=== PATIENT | female | born 1945 | race Caucasian/White ===

== ENCOUNTER 2017-07-16 12:55 | Inpatient (IN) ==
--- NOTE | 2017-07-16 13:17 | Emergency Department Note ---
Disposition Clinical Impression: Bronchitis, Generalized weakness Disposition: Admitted As Inpatient Condition: Fair Forms: ED Satisfaction Letter Time of Disposition: 15:53 General Adult HPI - General Chief complaint: ED Weakness Stated complaint: weakness Time Seen by Provider: 07/16/17 12:58 Source: patient, EMS Limitations: no limitations Nursing Notes Reviewed: Yes Vital Signs Reviewed: Yes - History of Present Illness HPI Narrative: 72-year-old who was diagnosed with flu A on 07/05/2017 and has gotten progressively worse since now we couldn't get out of bed today with a cough and shortness of breath. Pt Subjective Complaint: Otherwise weakness cough shortness of breath Onset (ago): day(s) Location: other (Generalized) Pain Scale: 8 Quality: aching Consistency: constant Improves with: nothing Worsens with: nothing Associated symptoms: Reports: cough, fever/chills Treatments Prior to Arrival: other (Tamiflu) - Related Data Allergies Allergy/AdvReac Type Severity Reaction Status Date / Time Sulfa (Sulfonamide Allergy Rash Verified 03/03/15 08:55 Antibiotics) Constitutional: Reports: fever. Denies: chills, weakness, weight change Eyes: Denies: eye pain, eye discharge, vision change ENT ED: Denies: ear pain, throat pain, dental pain, hearing loss, epistaxis, congestion, dysphagia Cardiovascular: Denies: chest pain, palpitations, dyspnea on exertion, edema, syncope Respiratory: Reports: cough, dyspnea. Denies: wheezes, hemoptysis, stridor Gastrointestinal: Denies: abdominal pain, nausea, vomiting, diarrhea, constipation, hematemesis, melena, hematochezia Genitourinary: Denies: dysuria, frequency, hematuria, discharge Musculoskeletal: Denies: back pain, neck pain, arthralgia, myalgia Integumentary: Denies: rash, abrasion, lesions Neurological: Reports: weakness (Generalized). Denies: headache, numbness, paresthesias, confusion, abnormal gait, vertigo Psychiatric: Denies: anxiety, depression, suicidal thoughts, homicidal thoughts , auditory hallucinations, visual hallucinations Endocrine: Denies: fatigue Hematological/Lymphatic: Denies: easy bleeding, easy bruising Allergic/Immunologic: Denies: facial swelling, urticaria Past Medical History - Past Medical History Medical history: Reports: cancer, osteoporosis Psychiatric history: Reports: no psych history - Social History Smoking Status: Never smoker Smokeless Tobacco Status: No Alcohol use: Reports: none Drug use: Reports: none Physical Exam - General Limitations: no limitations General appearance: alert - Head Head exam: atraumatic, normocephalic, normal inspection - Eye Eye exam: Present: normal appearance, PERRL, EOMI - ENT ENT exam: normal exam, normal oropharynx, mucous membranes moist - Neck Neck exam: Present: normal inspection, full ROM, trachea midline - Chest Chest inspection: Present: normal inspection, symmetric chest wall rise - Respiratory Respiratory exam: Present: wheezes (Regional) - Cardiovascular Cardiovascular exam: Present: regular rate, normal rhythm, normal heart sounds - Abdominal Exam Abdominal exam: Present: soft, Non-Tender. Absent: tenderness, distention, guarding, rebound, rigidity - Extremities Exam Extremities exam: Present: normal inspection, full ROM. Absent: tenderness, pedal edema - Expanded Lower Extremity Exam Neurovascular/Tendon exam: Absent: motor deficit, sensory deficit, tendon deficit - Back Exam Back exam: Present: normal inspection, full ROM. Absent: tenderness - Neurological Exam Neurological exam: Present: alert, oriented X3 - Psychiatric Psychiatric exam: Present: normal affect, normal mood - Skin Skin exam: Present: warm, dry, intact, normal color Course - Reevaluation(s) Reevaluation #1: 72-year-old comes in with cough congestion shortness of breath generalized weakness. Patient was diagnosed with the flu 2 weeks ago and has never gotten better. Initial chest x-ray is negative. We gave her fluids and she still felt pretty bad. We will go ahead and admit IV hydration will give her antibiotics. She hasn't been eating or drinking and it is possible that her pneumonia has not manifested itself as she is dehydrated. Time: 15:55 - Consultations Consultation #1: Discussed with Dr. Gagnon, admit Time: 15:54 Vital Signs Temperature 99.1 F 07/16/17 12:57 Pulse Rate 102 07/16/17 12:57 Respiratory Rate 20 07/16/17 12:57 Blood Pressure 137/68 07/16/17 12:57 O2 Sat by Pulse Oximetry 94 07/16/17 12:57 Temperature 99.1 F 07/16/17 12:57 Pulse Rate 103 07/16/17 15:19 Respiratory Rate 18 07/16/17 15:19 Blood Pressure 132/65 07/16/17 15:19 O2 Sat by Pulse Oximetry 94 07/16/17 15:19 Oxygen Delivery Oxygen Delivery Room Air Medical Decision Making - Lab Data Result diagrams: 07/16/17 13:27 07/16/17 13:27 Lab Results 07/16/17 07/16/17 07/16/17 Range/Units 13:27 13:27 13:27 WBC 13.0 H (4.3-11.1) K/mcL RBC 3.90 (3.82-4.97) M/mcL Hgb 11.5 (11.5-15.4) g/dL Hct 34.2 L (35.3-44.9) % MCV 87.7 (83.0-100.0) fL MCH 29.5 (28.0-33.3) pg MCHC 33.6 (31.6-35.5) g/dL RDW 12.4 (11.5-14.5) % Plt Count 255 (140-400) K/mcL MPV 10.7 (9.4-12.4) fL Immature Gran % 0.5 (0-4) % Seg Neutrophils % 82.4 % Lymphocytes % 8.1 % Monocytes % 8.9 % Eosinophils % 0.0 % Basophils % 0.1 % Neutrophils # 10.7 H (1.6-8.9) K/mcL Lymphocytes # 1.1 (0.6-4.6) K/mcL Monocytes # 1.2 (0.0-1.3) K/mcL Eosinophils # 0.0 (0.0-0.6) K/mcL Basophils # 0.0 (0.0-0.2) K/mcL Sodium 135 L (136-145) mEq/L Potassium 3.4 L (3.5-5.1) mEq/L Chloride 100 (98-107) mEq/L Carbon Dioxide 27 (23-29) mEq/L BUN 19 (8-23) mg/dL Creatinine 0.68 (0.60-1.20) mg/dL Est GFR ( Amer) > 60 (> 60) Est GFR (Non-Af Amer) > 60 (> 60) BUN/Creatinine Ratio 28 H (6-26) Glucose 110 H (70-105) mg/dL Calculated Osmolality 283 (280-300) Lactic Acid 1.0 (0.5-2.2) mmol/L Calcium 9.3 (8.6-10.3) mg/dL Troponin I (< 0.04) ng/mL 07/16/17 Range/Units 13:27 WBC (4.3-11.1) K/mcL RBC (3.82-4.97) M/mcL Hgb (11.5-15.4) g/dL Hct (35.3-44.9) % MCV (83.0-100.0) fL MCH (28.0-33.3) pg MCHC (31.6-35.5) g/dL RDW (11.5-14.5) % Plt Count (140-400) K/mcL MPV (9.4-12.4) fL Immature Gran % (0-4) % Seg Neutrophils % % Lymphocytes % % Monocytes % % Eosinophils % % Basophils % % Neutrophils # (1.6-8.9) K/mcL Lymphocytes # (0.6-4.6) K/mcL Monocytes # (0.0-1.3) K/mcL Eosinophils # (0.0-0.6) K/mcL Basophils # (0.0-0.2) K/mcL Sodium (136-145) mEq/L Potassium (3.5-5.1) mEq/L Chloride (98-107) mEq/L Carbon Dioxide (23-29) mEq/L BUN (8-23) mg/dL Creatinine (0.60-1.20) mg/dL Est GFR ( Amer) (> 60) Est GFR (Non-Af Amer) (> 60) BUN/Creatinine Ratio (6-26) Glucose (70-105) mg/dL Calculated Osmolality (280-300) Lactic Acid (0.5-2.2) mmol/L Calcium (8.6-10.3) mg/dL Troponin I < 0.03 (< 0.04) ng/mL
[2017-07-16 13:37] LABS: Basophils % 0.1 %; Hematocrit 34.2 % (35.3-44.9); Hemoglobin 11.5 g/dL (11.5-15.4); Immature Granulocytes % 0.5 % (0-4); Lymphocytes # 1.1 K/mcL (0.6-4.6); Lymphocytes % 8.1 %; Mean Corpuscular HGB Conc 33.6 g/dL (31.6-35.5); Mean Corpuscular Hemoglobin 29.5 pg (28.0-33.3); Mean Corpuscular Volume 87.7 fL (83.0-100.0); Mean Platelet Volume 10.7 fL (9.4-12.4); Monocytes # 1.2 K/mcL (0.0-1.3); Monocytes % 8.9 %; Neutrophils # 10.7 K/mcL (1.6-8.9); Platelet Count 255 K/mcL (140-400); Red Cell Distribution Width 12.4 % (11.5-14.5); Segmented Neutrophils % 82.4 %
[2017-07-16 14:01] LABS: BUN/Creatinine Ratio 28 (6-26); Blood Urea Nitrogen 19 mg/dL (8-23); Calcium 9.3 mg/dL (8.6-10.3); Carbon Dioxide 27 mEq/L (23-29); Chloride 100 mEq/L (98-107); Glucose 110 mg/dL (70-105); Osmolality,Calculated 283 (280-300); Potassium 3.4 mEq/L (3.5-5.1); Sodium 135 mEq/L (136-145); eGFR For African Americans > 60 (> 60); eGFR For Non-African Americans > 60 (> 60)
[2017-07-16] MEDS ORDERED: 0.9 % Sodium Chloride 1,000 ML IVC ONE (14:40)
[2017-07-16] MEDS ORDERED: Ipratropium/Albuterol Neb 3 ML IH ONE (14:40)
[2017-07-16] MEDS ORDERED: Acetaminophen 325 MG TABLET PO ONE (15:23)
[2017-07-16] MEDS ORDERED: Levofloxacin 500 MG/100 ML 500 MG/100 ML BAG IVPB ONE (15:53)
--- NOTE | 2017-07-16 16:40 | Internal Med History&Physical ---
Date of Encounter: 07/16/17 Time of Encounter: 04:30 Assessment and Plan (1) Bronchitis Current visit: Yes Status: Acute -Patient afebrile but with slight leukocytosis (WBC 13). -Chest x-ray reviewed by myself showed no infiltrates. -Will continue IV Levaquin (2) Generalized weakness Current visit: Yes Status: Acute -Suspect secondary to above in addition to dehydration. -Will initiate IV fluids. (3) DVT prophylaxis Current visit: Yes Status: Acute Subcutaneous heparin Internal Medicine - H&P: HPI Chief complaint: Generalized weakness Admitted From: Home Plans for Post Hospital Care: Home History of present illness: Patient is a 72-year-old female without any significant past medical history who was recently treated for influenza A on 07/05/17 with Tamiflu who presents to the ER on 07/16/17 due to no improvement in symptoms of generalized weakness and nonproductive cough. Patient symptoms have been present for approximately 2 weeks without any improvement. She complains of nonproductive cough and otherwise weakness to the point that she was barely able to get out of bed; she does live independently. In the ER, patient was found to have a slight leukocytosis (WBC 13) and afebrile. Chest x-ray reviewed by myself showed no infiltrates. She was started on IV Levaquin for bacterial bronchitis in the ER and will be admitted to the medical surgical floor for further management. Past Med Surg Social Fam HX - Past Medical History Medical history: cancer, osteoporosis Psychiatric history: no psych history - Social History Smoking Status: Never smoker Smokeless Tobacco Status: No Alcohol use: none Drug use: none Internal Medicine - H&P: Meds Ascorbic Acid [Vitamin C] 1,000 mg PO DAILY 07/16/17 [History] Calcium Carbonate [Calcium] 600 mg PO DAILY 07/16/17 [History] Cholecalciferol (D-3) [Vitamin D] 1,000 unit PO DAILY 07/16/17 [History] Cyanocobalamin (Vitamin B-12) [Vitamin B12] 1,000 mcg PO DAILY 07/16/17 [History ] Denosumab [Prolia (For Outpatient Infusion)] 60 mg SQ [id number] 07/16/17 [History ] Multivitamin [One Daily Essential] 1 each PO DAILY 07/16/17 [History] Vitamin E Acid Succinate [Vitamin E] 400 unit PO DAILY 07/16/17 [History] 3 Allergy/AdvReac Type Severity Reaction Status Date / Time Sulfa (Sulfonamide Allergy Rash Verified 03/03/15 08:55 Antibiotics) All Systems PM: A 10-system review of systems was performed and is negative for pertinent findings except as documented above in the HPI. - Constitutional Vitals: Temp Pulse Resp BP Pulse Ox 99.1 F 112 18 142/72 94 07/16/17 12:57 07/16/17 16:16 07/16/17 16:16 07/16/17 16:16 07/16/17 16:16 General appearance: Present: A&O X 3, no acute distress - Head Head exam: Present: atraumatic, normocephalic - Eye Eye exam: Present: EOMI. Absent: conjunctival injection - ENT ENT exam: Present: mucous membranes dry, normal oropharynx - Respiratory Respiratory exam: Present: CTAB. Absent: accessory muscle use, rales, rhonchi, wheezes - Cardiovascular Cardiovascular exam: Present: RRR, +S1, +S2. Absent: diastolic murmur, gallop, rubs, systolic murmur - GI/Abdominal GI/Abdominal exam: Present: normal bowel sounds, soft, no peritoneal signs. Absent: distended, tenderness - Extremities Exam Extremities exam: Present: warm. Absent: cyanotic, pedal edema - Neurological Exam Neurological exam: Present: alert, oriented X3 - Psychiatric Psychiatric exam: Present: normal mood - Skin Skin exam: Present: dry, intact, warm Internal Med - H&P Results - Labs CBC & Chem 7: 07/16/17 13:27 07/16/17 13:27 Labs: Short CBC 07/16/17 Range/Units 13:27 WBC 13.0 H (4.3-11.1) K/mcL Hgb 11.5 (11.5-15.4) g/dL Hct 34.2 L (35.3-44.9) % Plt Count 255 (140-400) K/mcL Neutrophils # 10.7 H (1.6-8.9) K/mcL BMP 07/16/17 13:27 Sodium 135 L Potassium 3.4 L Chloride 100 Carbon Dioxide 27 BUN 19 Creatinine 0.68 Glucose 110 H Calcium 9.3 Cardiac Enzymes 07/16/17 Range/Units 13:27 Troponin I < 0.03 (< 0.04) ng/mL - Impressions ITS Impressions Chest X-Ray 07/16/17 13:09 IMPRESSION: No acute cardiopulmonary disease. D/ / Merrick Hernandez MD / Merrick Hernandez MD Interpreting Provider: Merrick Hernandez MD
[2017-07-16] MEDS ORDERED: Naloxone 0.4 MG/ML INJ IVP PRN (16:50)
[2017-07-16] MEDS ORDERED: Acetaminophen 325 MG TABLET PO PRN (16:50)
[2017-07-16] MEDS: *HR* Heparin 5,000 UNIT/ML VIAL SQ SCH (21:55)
[2017-07-16] MEDS: 0.9 % Sodium Chloride 1,000 ML IVC SCH (22:04)
[2017-07-17] MEDS ORDERED: Ipratropium/Albuterol Neb 3 ML IH PRN (00:07)
[2017-07-17 00:34] LABS: Bilirubin,Urine Negative (Negative); Blood,Urine Negative (Negative); Clarity,Urine Clear (Clear); Color,Urine Yellow (Yellow); Glucose,Urine (UA) Normal (Normal); Ketones,Urine 15 mg/dL (Negative); Leukocyte Esterase,Urine Negative (Negative); Nitrite,Urine Negative (Negative); Protein,Urine Trace mg/dL (Neg-Trace); Specific Gravity,Urine 1.015 (1.010-1.025); Urobilinogen,Urine Normal (Normal)
[2017-07-17 00:37] LABS: Bacteria,Urine None Seen per hpf (None-Few); Hyaline Casts,Urine None Seen per lpf (None-Few); Squamous Epithelial Cell,Urine Many per lpf (None-Few)
[2017-07-17 04:19] LABS: Hematocrit 30.3 % (35.3-44.9); Mean Corpuscular Hemoglobin 28.9 pg (28.0-33.3); Mean Corpuscular Volume 87.6 fL (83.0-100.0); Mean Platelet Volume 10.4 fL (9.4-12.4); Platelet Count 254 K/mcL (140-400); Red Blood Count 3.46 M/mcL (3.82-4.97); Red Cell Distribution Width 12.2 % (11.5-14.5)
[2017-07-17 04:39] LABS: BUN/Creatinine Ratio 18 (6-26); Blood Urea Nitrogen 10 mg/dL (8-23); Calcium 8.2 mg/dL (8.6-10.3); Carbon Dioxide 24 mEq/L (23-29); Chloride 105 mEq/L (98-107); Glucose 97 mg/dL (70-105); Osmolality,Calculated 285 (280-300); Potassium 3.1 mEq/L (3.5-5.1); Sodium 138 mEq/L (136-145); eGFR For African Americans > 60 (> 60); eGFR For Non-African Americans > 60 (> 60)
[2017-07-17] MEDS: *HR* Heparin 5,000 UNIT/ML VIAL SQ SCH ×3 (05:05→21:44)
[2017-07-17] MEDS: 0.9 % Sodium Chloride 1,000 ML IVC SCH ×2 (09:59→12:27)
[2017-07-17 12:50] LABS: Acinetobacter baumannii by PCR Not Detected (Not Detect); Enterococcus by PCR Not Detected (Not Detect); Escherichia coli by PCR Not Detected (Not Detect); Klebsiella oxytoca by PCR Not Detected (Not Detect); Klebsiella pneumoniae by PCR Not Detected (Not Detect); Serratia marcescens by PCR Not Detected (Not Detect); Staphylococcus aureus by PCR Not Detected (Not Detect); Streptococcus agalactiae(B)PCR Not Detected (Not Detect); Streptococcus by PCR Not Detected (Not Detect); Streptococcus pneumoniae PCR Not Detected (Not Detect); Streptococcus pyogenes (A) PCR Not Detected (Not Detect); mecA Methicillin-Resist Gene ***DETECTED*** (Not Detect)
[2017-07-17 12:51] LABS: Candida albicans by PCR Not Detected (Not Detect); Candida glabrata by PCR Not Detected (Not Detect); Candida krusei by PCR Not Detected (Not Detect); Candida parapsilosis by PCR Not Detected (Not Detect); Candida tropicalis by PCR Not Detected (Not Detect); Pseudomonas aeruginosa by PCR Not Detected (Not Detect)
--- NOTE | 2017-07-17 13:33 | Electrocardiograph Report ---
[place] [id number] Test Date: 2017-07-16 Pat Name: Aracely Jorge Department: 104 Room: 3B16 Gender: F Email Marketing Coordinator: ALEJANDRA : 1945 Requested By: Chris Blair Order Number: [id number] Reading MD: Sue Farley Measurements Intervals [place] Rate: 103 P: 55 [place]: 157 QRS: 38 QRSD: 78 T: 53 QT: 326 QTc: 385 Interpretive Statements SINUS TACHYCARDIA POSSIBLE LEFT ATRIAL ENLARGEMENT [-0.1mV P WAVE IN V1/V2] ABNORMAL RHYTHM ECG Electronically Signed On 07-17-2017 13:32:15 EST by Sue Farley
[2017-07-17] MEDS ORDERED: Vancomycin 750 MG in D5% in Water 250 ML IVPB SCH (14:00)
[2017-07-17] MEDS: Vancomycin 750 MG in D5% in Water 250 ML IVPB SCH (15:39)
[2017-07-17] MEDS: Levofloxacin 500 MG/100 ML 500 MG/100 ML BAG IVPB SCH (17:51)
--- NOTE | 2017-07-17 18:19 | Internal Med Progress Note ---
Date of Encounter: 07/17/17 Time of Encounter: 12:00 - Assessment and plan (1) Bacteremia Current Visit: Yes Status: Acute Assessment and plan: Patient's blood cultures positive for gram-positive cocci staphylococcus species mecA methicillin-resistant gene Patient clinically not better so will treat as if not a contaminant until official culture results shown IV vancomycin started (2) Bronchitis Current Visit: Yes Status: Acute Assessment and plan: -Will continue IV Levaquin for suspected bronchitis as leukocytosis has resolved (3) Generalized weakness Current Visit: Yes Status: Acute (4) DVT prophylaxis Current Visit: Yes Status: Acute Assessment and plan: Heparin - Subjective Interval history: Patient's blood cultures positive for gram-positive cocci staphylococcus species mecA methicillin-resistant gene Patient clinically not better so will treat as if not a contaminant until official culture results shown - Constitutional Vitals: Temp Pulse Resp BP Pulse Ox 98.4 F 94 16 114/61 94 07/17/17 15:47 07/17/17 15:47 07/17/17 15:47 07/17/17 15:47 07/17/17 15:47 General appearance: Present: A&O X 3, no acute distress - Respiratory Respiratory exam: Present: CTAB. Absent: accessory muscle use, rales, rhonchi, wheezes - Cardiovascular Cardiovascular exam: Present: RRR, +S1, +S2. Absent: diastolic murmur, gallop, rubs, systolic murmur Internal Medicine: Result - Labs CBC & Chem 7: 07/17/17 04:10 07/17/17 04:10 Labs: Short CBC 07/17/17 Range/Units 04:10 WBC 10.1 (4.3-11.1) K/mcL Hgb 10.0 L D (11.5-15.4) g/dL Hct 30.3 L (35.3-44.9) % Plt Count 254 (140-400) K/mcL BMP 07/17/17 04:10 Sodium 138 Potassium 3.1 L Chloride 105 Carbon Dioxide 24 BUN 10 Creatinine 0.55 L Glucose 97 Calcium 8.2 L Urine 07/16/17 Range/Units 23:00 Urine Color Yellow (Yellow) Urine Clarity Clear (Clear) Urine pH 7.0 (5.0-8.0) pH Units Ur Specific [place] 1.015 (1.010-1.025) Urine Protein Trace (Neg-Trace) mg/dL Urine Glucose (UA) Normal (Normal) mg/dL Consult Discharge Plan - Plan Referrals: Lawrence Byrne MD [Primary Care Provider] -
[2017-07-18] MEDS: Vancomycin 750 MG in D5% in Water 250 ML IVPB SCH ×2 (02:59→15:05)
[2017-07-18] MEDS: *HR* Heparin 5,000 UNIT/ML VIAL SQ SCH ×3 (05:17→21:13)
[2017-07-18 09:56] LABS: Basophils % 0.4 %; Eosinophils % 0.5 %; Hematocrit 31.7 % (35.3-44.9); Hemoglobin 10.6 g/dL (11.5-15.4); Immature Granulocytes % 0.5 % (0-4); Lymphocytes # 1.4 K/mcL (0.6-4.6); Lymphocytes % 18.1 %; Mean Corpuscular HGB Conc 33.4 g/dL (31.6-35.5); Mean Corpuscular Hemoglobin 29.4 pg (28.0-33.3); Mean Corpuscular Volume 87.8 fL (83.0-100.0); Mean Platelet Volume 10.3 fL (9.4-12.4); Monocytes # 0.9 K/mcL (0.0-1.3); Monocytes % 10.8 %; Neutrophils # 5.5 K/mcL (1.6-8.9); Platelet Count 276 K/mcL (140-400); Red Blood Count 3.61 M/mcL (3.82-4.97); Red Cell Distribution Width 12.2 % (11.5-14.5); Segmented Neutrophils % 69.7 %
[2017-07-18 10:12] LABS: BUN/Creatinine Ratio 13 (6-26); Blood Urea Nitrogen 7 mg/dL (8-23); Carbon Dioxide 26 mEq/L (23-29); Chloride 108 mEq/L (98-107); Glucose 103 mg/dL (70-105); Osmolality,Calculated 292 (280-300); Potassium 3.1 mEq/L (3.5-5.1); Sodium 142 mEq/L (136-145); eGFR For African Americans > 60 (> 60); eGFR For Non-African Americans > 60 (> 60)
[2017-07-18] MEDS: Levofloxacin 500 MG/100 ML 500 MG/100 ML BAG IVPB SCH (16:21)
--- NOTE | 2017-07-18 16:31 | Internal Med Progress Note ---
Date of Encounter: 07/18/17 Time of Encounter: 11:00 - Assessment and plan (1) Bacteremia Current Visit: Yes Status: Acute Assessment and plan: -Patient's blood cultures positive for gram-positive cocci staphylococcus species mecA methicillin-resistant gene; suspect contamination -Patient clinically not better so will treat as if not a contaminant until official culture results shown; blood cultures redrawn on 07/18/17 -Continued day 2 of IV vancomycin (2) Bronchitis Current Visit: Yes Status: Acute Assessment and plan: -Patient has been afebrile and leukocytosis resolved after starting IV Levaquin -Will continue day 3 of IV Levaquin for suspected bacterial bronchitis (3) Generalized weakness Current Visit: Yes Status: Acute Assessment and plan: -Secondary to patient's recent illness with influenza A and bronchitis. -Consult physical therapy and appreciate recommendations (4) Hypokalemia Current Visit: Yes Status: Acute Assessment and plan: -Patient has had hypokalemia since admission and is 3.1 today -Oral potassium supplement given continue to monitor. -Continue to monitor (5) DVT prophylaxis Current Visit: Yes Status: Acute Assessment and plan: Heparin - Subjective Interval history: Patient's blood cultures positive for gram-positive cocci staphylococcus species mecA methicillin-resistant gene but suspect possible contamination Repeat blood cultures drawn on 07/18/17 Patient continues to be afebrile without leukocytosis - Constitutional Vitals: Temp Pulse Resp BP Pulse Ox 98.6 F 78 18 143/73 95 07/18/17 16:13 07/18/17 16:13 07/18/17 16:13 07/18/17 16:13 07/18/17 16:13 General appearance: Present: A&O X 3, no acute distress - Respiratory Respiratory exam: Present: CTAB. Absent: accessory muscle use, rales, rhonchi, wheezes - Cardiovascular Cardiovascular exam: Present: RRR, +S1, +S2. Absent: diastolic murmur, gallop, rubs, systolic murmur Internal Medicine: Result - Labs CBC & Chem 7: 07/18/17 09:37 07/18/17 09:37 Labs: Short CBC 07/18/17 Range/Units 09:37 WBC 7.8 (4.3-11.1) K/mcL Hgb 10.6 L (11.5-15.4) g/dL Hct 31.7 L (35.3-44.9) % Plt Count 276 (140-400) K/mcL Neutrophils # 5.5 (1.6-8.9) K/mcL BMP 07/18/17 09:37 Sodium 142 Potassium 3.1 L Chloride 108 H Carbon Dioxide 26 BUN 7 L Creatinine 0.54 L Glucose 103 Calcium 8.0 L Consult Discharge Plan - Plan Referrals: Lawrence Byrne MD [Primary Care Provider] -
[2017-07-19 01:13] LABS: Basophils % 0.2 %; Eosinophils # 0.1 K/mcL (0.0-0.6); Eosinophils % 0.9 %; Hematocrit 30.1 % (35.3-44.9); Hemoglobin 9.9 g/dL (11.5-15.4); Immature Granulocytes % 0.4 % (0-4); Lymphocytes # 1.7 K/mcL (0.6-4.6); Mean Corpuscular HGB Conc 32.9 g/dL (31.6-35.5); Mean Corpuscular Hemoglobin 28.9 pg (28.0-33.3); Mean Corpuscular Volume 87.8 fL (83.0-100.0); Mean Platelet Volume 10.5 fL (9.4-12.4); Monocytes # 0.9 K/mcL (0.0-1.3); Monocytes % 10.6 %; Neutrophils # 6.1 K/mcL (1.6-8.9); Platelet Count 288 K/mcL (140-400); Red Blood Count 3.43 M/mcL (3.82-4.97); Red Cell Distribution Width 12.2 % (11.5-14.5); Segmented Neutrophils % 68.9 %
[2017-07-19 01:33] LABS: BUN/Creatinine Ratio 12 (6-26); Blood Urea Nitrogen 6 mg/dL (8-23); Calcium 8.4 mg/dL (8.6-10.3); Carbon Dioxide 25 mEq/L (23-29); Chloride 109 mEq/L (98-107); Glucose 103 mg/dL (70-105); Osmolality,Calculated 286 (280-300); Potassium 3.7 mEq/L (3.5-5.1); Sodium 139 mEq/L (136-145); eGFR For African Americans > 60 (> 60); eGFR For Non-African Americans > 60 (> 60)
[2017-07-19] MEDS: Vancomycin 750 MG in D5% in Water 250 ML IVPB SCH (02:20)
[2017-07-19] MEDS: *HR* Heparin 5,000 UNIT/ML VIAL SQ SCH ×4 (06:03→20:14)
[2017-07-19] MEDS ORDERED: Vancomycin 1,000 MG in D5% in Water 250 ML IVPB SCH (12:00)
[2017-07-19] MEDS: Levofloxacin 500 MG/100 ML 500 MG/100 ML BAG IVPB SCH (15:58)
--- NOTE | 2017-07-19 18:02 | Internal Med Progress Note ---
Date of Encounter: 07/19/17 Time of Encounter: 11:00 - Assessment and plan (1) Bacteremia Current Visit: Yes Status: Acute Assessment and plan: -Patient's blood cultures positive for gram-positive cocci staphylococcus species mecA methicillin-resistant gene; suspect contamination -Repeat blood cultures redrawn on 07/18/17 and pending -IV vancomycin discontinued (2) Bronchitis Current Visit: Yes Status: Acute Assessment and plan: -Patient has been afebrile and leukocytosis resolved after starting IV Levaquin -Will continue day 4 of IV Levaquin for suspected bacterial bronchitis (3) Generalized weakness Current Visit: Yes Status: Acute Assessment and plan: -Secondary to patient's recent illness with influenza A and bronchitis. -Consult physical therapy and appreciate recommendations (4) Hypokalemia Current Visit: Yes Status: Acute Assessment and plan: -Resolved -Continue to monitor (5) DVT prophylaxis Current Visit: Yes Status: Acute Assessment and plan: Heparin - Subjective Interval history: Patient's blood cultures positive for gram-positive cocci staphylococcus species mecA methicillin-resistant gene but suspect possible contamination Repeat blood cultures drawn on 07/18/17 and are pending Patient continues to be afebrile without leukocytosis - Constitutional Vitals: Temp Pulse Resp BP Pulse Ox 98.3 F 86 17 154/78 94 07/19/17 15:40 07/19/17 15:40 07/19/17 15:40 07/19/17 15:40 07/19/17 15:40 General appearance: Present: A&O X 3, no acute distress - Respiratory Respiratory exam: Present: CTAB. Absent: accessory muscle use, rales, rhonchi, wheezes - Cardiovascular Cardiovascular exam: Present: RRR, +S1, +S2. Absent: diastolic murmur, gallop, rubs, systolic murmur Internal Medicine: Result - Labs CBC & Chem 7: 07/19/17 00:59 07/19/17 00:59 Labs: Short CBC 07/19/17 Range/Units 00:59 WBC 8.9 (4.3-11.1) K/mcL Hgb 9.9 L (11.5-15.4) g/dL Hct 30.1 L (35.3-44.9) % Plt Count 288 (140-400) K/mcL Neutrophils # 6.1 (1.6-8.9) K/mcL BMP 07/19/17 00:59 Sodium 139 Potassium 3.7 Chloride 109 H Carbon Dioxide 25 BUN 6 L Creatinine 0.51 L Glucose 103 Calcium 8.4 L Consult Discharge Plan - Plan Referrals: Lawrence Byrne MD [Primary Care Provider] -
[2017-07-20] MEDS: *HR* Heparin 5,000 UNIT/ML VIAL SQ SCH ×2 (04:47→14:50)
[2017-07-20 06:52] LABS: BUN/Creatinine Ratio 15 (6-26); Blood Urea Nitrogen 9 mg/dL (8-23); Calcium 8.9 mg/dL (8.6-10.3); Carbon Dioxide 25 mEq/L (23-29); Chloride 107 mEq/L (98-107); Glucose 127 mg/dL (70-105); Osmolality,Calculated 290 (280-300); Potassium 3.3 mEq/L (3.5-5.1); Sodium 140 mEq/L (136-145); eGFR For African Americans > 60 (> 60); eGFR For Non-African Americans > 60 (> 60)
[2017-07-20 07:31] LABS: Basophils # 0.1 K/mcL (0.0-0.2); Basophils % 0.6 %; Eosinophils # 0.2 K/mcL (0.0-0.6); Eosinophils % 2.5 %; Hematocrit 31.3 % (35.3-44.9); Hemoglobin 10.3 g/dL (11.5-15.4); Immature Granulocytes % 0.5 % (0-4); Lymphocytes # 1.7 K/mcL (0.6-4.6); Lymphocytes % 21.4 %; Mean Corpuscular HGB Conc 32.9 g/dL (31.6-35.5); Mean Corpuscular Hemoglobin 28.9 pg (28.0-33.3); Mean Corpuscular Volume 87.9 fL (83.0-100.0); Mean Platelet Volume 10.7 fL (9.4-12.4); Monocytes # 0.7 K/mcL (0.0-1.3); Monocytes % 8.5 %; Neutrophils # 5.2 K/mcL (1.6-8.9); Platelet Count 333 K/mcL (140-400); Red Blood Count 3.56 M/mcL (3.82-4.97); Red Cell Distribution Width 12.3 % (11.5-14.5); Segmented Neutrophils % 66.5 %
[2017-07-20 10:51] VITALS: BP 111/66
--- NOTE | 2017-07-20 15:02 | Discharge Summary ---
Date of Encounter: 07/20/17 Time of Encounter: 11:00 - Discharge Diagnosis (1) Bronchitis Priority: Primary Status: Acute (2) Generalized weakness Priority: Secondary Status: Acute (3) Hypokalemia Priority: Secondary Status: Acute - Discharge Medications Prescriptions: Levofloxacin [Levaquin] 500 mg PO DAILY #5 tablet Home Medications: Ascorbic Acid [Vitamin C] 1,000 mg PO DAILY 07/16/17 [History] Calcium Carbonate [Calcium] 600 mg PO DAILY 07/16/17 [History] Cholecalciferol (D-3) [Vitamin D] 1,000 unit PO DAILY 07/16/17 [History] Cyanocobalamin (Vitamin B-12) [Vitamin B12] 1,000 mcg PO DAILY 07/16/17 [History ] Denosumab [Prolia (For Outpatient Infusion)] 60 mg SQ [id number] 07/16/17 [History ] Multivitamin [One Daily Essential] 1 each PO DAILY 07/16/17 [History] Vitamin E Acid Succinate [Vitamin E] 400 unit PO DAILY 07/16/17 [History] Levofloxacin [Levaquin] 500 mg PO DAILY #5 tablet 07/20/17 [Rx] Allergies/Adverse Reactions: 3 Allergy/AdvReac Type Severity Reaction Status Date / Time Sulfa (Sulfonamide Allergy Rash Verified 03/03/15 08:55 Antibiotics) Date of admission: 07/16/17 20:23 Primary care physician: Lawrence Byrne MD - Patient Status Disposition: Home, Self-Care Condition: Fair - Discharge Instructions Follow Up With: Lawrence Byrne MD [Primary Care Provider] - Hospital course: Patient is a 72-year-old female without any significant past medical history who was recently treated for influenza A on 07/05/17 with Tamiflu who presents to the ER on 07/16/17 due to no improvement in symptoms of generalized weakness and nonproductive cough. Patient symptoms have been present for approximately 2 weeks without any improvement. She complains of nonproductive cough and otherwise weakness to the point that she was barely able to get out of bed; she does live independently. In the ER, patient was found to have a slight leukocytosis (WBC 13) and afebrile. Chest x-ray reviewed by myself showed no infiltrates. She was started on IV Levaquin for bacterial bronchitis in the ER and will be admitted to the medical surgical floor for further management. During patients hospital stay she remained afebrile and her leukocytosis resolved on IV Levaquin. Patients symptoms also improved and is stable for discharge home to continue a 5 day course of Levaquin. - Time Spent with Patient Total time spent providing and/or coordinating discharge services: Less than 30 minutes - Constitutional Vitals: Temp Pulse Resp BP Pulse Ox 97.4 F L 78 16 111/66 94 07/20/17 10:50 07/20/17 10:50 07/20/17 10:50 07/20/17 10:50 07/20/17 10:50 General appearance: Present: A&O X 3, no acute distress
[2017-07-20] MEDS ORDERED: Aminoglycoside Consult 1 EACH MC ONE (18:04)
== END 2017-07-20 18:05 | disposition home or self-care (01) | DRG 202 ==
LOC: 3BNU 12:55 → EMEROO 12:55 → 3BNU 17:22 → SUATTDRO 20:23
PROVIDERS: ADMIT Hospitalist; ATTEND Hospitalist